=== PATIENT | male | born 1955 | race Caucasian/White ===

== ENCOUNTER → 2017-05-02 | Day surgery (SDC) | payer MEDICARE, BC ==
[~2017-05-02] MED LIST: ACETAMINOPHEN 1000 MG/100 ML VIAL IV ONE; AMOX500T PO; BACLPOW30 XX; BUPIVACAINE/EPINEPHRINE 0.5% PF 30 ML VIAL ONE; CELE200 PO; CREON24 OR; FENT50DI TD; GLUCTAB OR; KETO2SHA5 EX; LACTATED RINGER'S 1,000 ML BAG IV ONE; LIDOCAINE 0.5%/EPINEPHrine 1:200,000 SOLN 50 ML VIAL ONE; LIDOCAINE 2%/EPINEPHrine PF 1:200,000 20ML SDV ONE; LIPI80TA16 PO; MARI5CAP PO; METO10TA PO; NEVI200 PO; NUCY50TA9 PO; ONDANSETRON HCL 4 MG/2 ML VIAL IV PUSH ONE; PREG75 PO; PREV30CA36 PO; PROPOFOL 200 MG/20 ML AMP IV ONE; PROV200T11 PO; SERO100T PO; SERT100 PO; TEST-25 INJ; TRAZ150T2 PO; VIAG100T PO; XANA1TAB6 PO; [UNRECOGNIZED DRUG - CODE] SC; [UNRECOGNIZED DRUG - OTHER]; [UNRECOGNIZED DRUG - OTHER] BU; ceFAZolin INJ 1,000 MG VIAL ONE; truvada PO
--- NOTE | 2017-05-02 17:13 | TN ---
cc: MARY GONZALES M.D. DATE OF SURGERY 05/02/2017 PREOPERATIVE DIAGNOSIS Left gluteal mass measuring 2 cm. POSTOPERATIVE DIAGNOSIS Left gluteal mass measuring 2 cm. PROCEDURE Wide excision of 2 cm gluteal mass by elliptical incision measuring of 3 x 5 cm. ANESTHESIA TIVA. SURGEON Dr. Gonzales. INDICATION This is a pleasant gentleman who has a tender mass in the left gluteal region. Plans were made for above. PROCEDURE DETAILS The patient taken to the operating room and placed in the supine position. After placing him in the right lateral decubitus position the area had previously been marked and marked with Betadine. He was given antibiotics. We make an elliptical incision along Langerhans line measuring 3 x 5 cm. After anesthetizing with Marcaine solution, dissect circumferentially around the area in question and completely remove this. It is passed off the field. We then irrigate and close the deep layer with 3-0 Vicryl and skin is closed with 4-0 Vicryl. Steri-Strips applied. Sterile bandage applied. The patient tolerated the procedure well and had no immediate postoperative complications. Mary Gonzales MD [id number] /4:42 PM /4:55 PM
== END | disposition home or self-care (01) ==
LOC: ESDC 11:21
PROVIDERS: ATTEND Surgery
DX: L72.0 Epidermal cyst (principal)
CPT/HCPCS: 00300; 11406; 12032; 88304; J0131; J0690; J2405; J3010; J7120; 88305

== ENCOUNTER 2017-12-07 10:35 | Inpatient (IN) | payer MEDICARE, BC ==
[2017-12-07] VITALS (9 sets, daily range): BP systolic 116–147; BP diastolic 62–81; PULSE 84–107; RESP 16–24; TEMP 97.5–99.8; O2SAT 91–98
[~2017-12-07] VITALS: Ht 180.3 cm; Wt 89.2 kg
[~2017-12-07 10:35] MED LIST changes: -ACETAMINOPHEN 1000 MG/100 ML VIAL IV ONE; -BUPIVACAINE/EPINEPHRINE 0.5% PF 30 ML VIAL ONE; -LACTATED RINGER'S 1,000 ML BAG IV ONE; -LIDOCAINE 0.5%/EPINEPHrine 1:200,000 SOLN 50 ML VIAL ONE; -LIDOCAINE 2%/EPINEPHrine PF 1:200,000 20ML SDV ONE; -ONDANSETRON HCL 4 MG/2 ML VIAL IV PUSH ONE; -PROPOFOL 200 MG/20 ML AMP IV ONE; -ceFAZolin INJ 1,000 MG VIAL ONE
[2017-12-07] MEDS ORDERED: SODIUM CHLORID 0.9% 500 ML INJ 500 ML IV ONE (11:15)
[2017-12-07] MEDS ORDERED: [UNRECOGNIZED DRUG - CODE] (11:27)
[2017-12-07] MEDS ORDERED: REGL10TA5 PO (11:27)
[2017-12-07] MEDS ORDERED: MARI10CA PO (11:27)
[2017-12-07] MEDS ORDERED: LIPI80TA PO (11:27)
[2017-12-07] MEDS ORDERED: SERO100T PO (11:27)
[2017-12-07] MEDS ORDERED: CREON24 PO (11:27)
[2017-12-07] MEDS ORDERED: PREV30CA36 PO ×2 (11:27)
[2017-12-07] MEDS ORDERED: METF500T PO (11:27)
[2017-12-07] MEDS ORDERED: ELVITAB PO (11:27)
[2017-12-07] MEDS ORDERED: TRAZ300T2 PO (11:27)
[2017-12-07] MEDS ORDERED: VIAG100T PO (11:27)
[2017-12-07] MEDS ORDERED: AMOX500C PO (11:27)
[2017-12-07] MEDS ORDERED: XANA1TAB2 PO (11:27)
[2017-12-07] MEDS ORDERED: LYRI225C PO (11:27)
[2017-12-07] MEDS ORDERED: RITALIN PO (11:27)
[2017-12-07] MEDS ORDERED: ZOLO100T PO (11:27)
[2017-12-07] MEDS ORDERED: [UNRECOGNIZED DRUG - OTHER] (11:27)
[2017-12-07] MEDS ORDERED: AMBI12.5 PO (11:27)
[2017-12-07] MEDS ORDERED: NUCY75TA5 PO (11:27)
[2017-12-07] MEDS ORDERED: CELE200C PO (11:27)
[2017-12-07] MEDS ORDERED: KETO2CRE TOPICAL (11:27)
[2017-12-07] MEDS ORDERED: MODA1TAB31 PO (11:27)
[2017-12-07] MEDS ORDERED: RESP: ALBUTEROL 2.5 MG/IPRATROPIUM 0.5 MG NEB (SCH) NEB ONE (11:30)
[2017-12-07 11:55] LABS: AUTOMATED NEUTROPHIL # 3.5 TH/MM3 (1.8-7.7); BASOPHIL % 0.7 % (0.0-2.0); EOSINOPHIL # 0.1 TH/MM3 (0-0.4); HEMATOCRIT 44.9 % (39.0-51.0); HEMOGLOBIN 14.1 GM/DL (13.0-17.0); LYMPH % 10.2 % (9.0-44.0); LYMPHOCYTE # 0.5 TH/MM3 (1.0-4.8); MEAN CELL VOLUME 82.3 FL (80.0-100.0); MEAN CORPUSCULAR HEMOGLOBIN 25.9 PG (27.0-34.0); MEAN CORPUSCULAR HGB CONC 31.4 % (32.0-36.0); MEAN PLATELET VOLUME 8.9 FL (7.0-11.0); MONO % 7.9 % (0.0-8.0); MONOCYTE # 0.4 TH/MM3 (0-0.9); NEUT % 79.2 % (16.0-70.0); PLATELET COUNT 152 TH/MM3 (150-450); RED BLOOD COUNT 5.46 MIL/MM3 (4.50-5.90); RED CELL DISTRIBUTION WIDTH 16.1 % (11.6-17.2); WHITE BLOOD COUNT 4.5 TH/MM3 (4.0-11.0)
--- NOTE | 2017-12-07 11:59 | RADRPT ---
EXAM DATE/TIME: 12/07/2017 11:10 [facility] COMPARISON: No previous studies available for comparison. INDICATIONS : Short of breath MEDICAL HISTORY : Hypercholesterolemia. HIV SURGICAL HISTORY : Fusion, cervical. ENCOUNTER: Initial ACUITY: 1 day PAIN SCORE: 0/10 LOCATION: Bilateral chest FINDINGS: Portable AP view of the chest demonstrates a normal-sized cardiac silhouette. No effusion, consolidat ion, or pneumothorax is identified. There are background lung changes suggesting obstructive airways disease. The bones and soft tissues demonstrate no acute finding. Cervical spine hardware is present. CONCLUSION: No acute cardiopulmonary abnormalities identified. Background lung changes are torturous to give obst ructive airways disease/emphysema. Atul Spain MD on December 07, 2017 at 11:49 Board Certified Radiologist. This report was verified electronically.
[2017-12-07 12:03] LABS: CHLORIDE 108 MEQ/L (98-107); SODIUM (NA) 140 MEQ/L (136-145)
[2017-12-07 12:06] LABS: CALCIUM 8.5 MG/DL (8.5-10.1)
[2017-12-07 12:07] LABS: ALBUMIN 3.8 GM/DL (3.4-5.0); BICARBONATE 25.1 MEQ/L (21.0-32.0); BLOOD UREA NITROGEN 9 MG/DL (7-18); GLUCOSE,RANDOM 113 MG/DL (74-106)
[2017-12-07 12:10] LABS: ALT (GPT) 65 U/L (12-78); AST (GOT) 78 U/L (15-37); CREATININE 0.98 MG/DL (0.60-1.30); GLOMERULAR FILTRATION RATE 77 ML/MIN (>89); PHOSPHORUS 1.7 MG/DL (2.5-4.9)
[2017-12-07 12:11] LABS: TOTAL BILIRUBIN ADULT 0.5 MG/DL (0.2-1.0); TOTAL PROTEIN 7.1 GM/DL (6.4-8.2)
[2017-12-07 12:13] LABS: ALKALINE PHOSPHATASE 105 U/L (45-117)
--- NOTE | 2017-12-07 12:26 | PD ---
HPI Chief Complaint: Cold / Flu Symptoms Time Seen by Provider: 11:08 Travel History International Travel<30 days: No Contact w/Intl Traveler<30days: No Traveled to known affect area: No History of Present Illness HPI 62-year-old male presents with cough, chills, nasal congestion since last night. He states he feels worse when he moves around. He notes sick contacts. He denies other concurrent complaints at this time. He states he follows regularly with Dr. Berry and his last CD4 was about 950. Quality is productive. Severity is frequent. He denies other modifying factors. Duration is since last night. PFSH Past Medical History Arthritis: Yes Blood Disorders: No Anxiety: Yes Depression: Yes Cancer: No Cardiovascular Problems: No High Cholesterol: Yes Diabetes: Yes Patient Takes Glucophage: Yes (TODAY) Diminished Hearing: No Endocrine: No Gastrointestinal Disorders: Yes (HX RECTAL ULCER) GERD: Yes Genitourinary: No Hiatal Hernia: Yes Immune Disorder: Yes (HIV) Implanted Vascular Access Dvce: Yes Musculoskeletal: Yes Neurologic: No Psychiatric: Yes Reproductive: No Respiratory: Yes (EVERARDO) Pancreatitis: Yes Sleep Apnea: Yes (uses c-pap) Tetanus Vaccination: Unknown Past Surgical History Abdominal Surgery: Yes (appendectomy,cholecystectomy) Appendectomy: Yes Body Medical Devices: titanium plates in the back and neck Cholecystectomy: Yes Joint Replacement: Yes (BILATERAL HIP) Oral Surgery: Yes (T & A, UPPP) Pacemaker: No Tonsillectomy: Yes Other Surgery: Yes (LEFT TOTAL HIP TRANSPLANT) Social History Alcohol Use: No Tobacco Use: Yes (6 cigarettes per day) Substance Use: No Allergies-Medications (Allergen,Severity, Reaction): Coded Allergies: ciprofloxacin (Verified Allergy, Severe, RASH, 12/07/17) Reported Meds & Prescriptions Reported Meds & Active Scripts Active Reported [Ritalin] 10 Mg PO BID Ambien CR (Zolpidem Tartrate) 12.5 Mg Tab 12.5 Mg PO HS PRN Amoxicillin 500 Mg Cap 500 Mg PO DIRECTED Fluoridex (Fluoride (Sodium)) 1.1 % Sodium Fluoride Paste..g. Seroquel (Quetiapine Fumarate) 100 Mg Tab 100 Mg PO HS Xanax (Alprazolam) 1 Mg Tab 1 Mg PO QID PRN Trazodone (Trazodone HCl) 300 Mg Tab 300 Mg PO HS Zoloft (Sertraline HCl) 100 Mg Tab 100 Mg PO DAILY Metformin (Metformin HCl) 500 Mg Tab 500 Mg PO BIDPC Ketoconazole Topical 2% Cream 1 Applic TOPICAL BID Marinol (Dronabinol) 10 Mg Cap 10 Mg PO HS Reglan (Metoclopramide HCl) 10 Mg Tab 10 Mg PO QID Stribild (Yrvlrdaqgiss-Fdgtwghirj-Iwtypvyvxeaj-Tenofvir) [phone] Mg Tab 1 Tab PO DAILY With food Creon (Amylase/Lipase/Protease) 24,000-76,000-120,000 Units Cap 1 Cap PO QID NEB Viagra (Sildenafil Citrate) 100 Mg Tab 100 Mg PO DAILY PRN Lipitor (Atorvastatin Calcium) 80 Mg Tab 80 Mg PO HS Prevacid (Lansoprazole) 30 Mg Capdr 30 Mg PO DAILY Prevacid (Lansoprazole) 30 Mg Capdr 30 Mg PO BID Celebrex (Celecoxib) 200 Mg Cap 200 Mg PO BID Lyrica (Pregabalin) 225 Mg Cap 225 Mg PO BID Provigil (Modafinil) 200 Mg Tab 200 Mg PO DAILY [Duralgesic] 50 Nucynta (Tapentadol) 75 Mg Tab 75 Mg PO TID PRN [Xerostomic] [Fluoridex Toothpaste] 1 Appl BU DAILY [truvada] PO DAILY [Testosterone] 200 Mg INJ [id number] Review of Systems Except as stated in HPI: all other systems reviewed are Neg Physical Exam Narrative GENERAL: Well-nourished, well-developed patient. SKIN: Warm and dry. HEAD: Normocephalic and atraumatic. EYES: No injection or drainage. ENT: No nasal drainage noted. NECK: Supple, trachea midline. CARDIOVASCULAR: Regular rate and rhythm RESPIRATORY: Expiratory wheezing bilaterally. No accessory muscle use. GASTROINTESTINAL: Abdomen soft, non-tender, nondistended. EXTREMITIES: No edema. NEUROLOGICAL: Awake and alert. Motor and sensory grossly within normal limits. Normal speech. Data Data Last Documented VS Vital Signs Date Time Temp Pulse Resp B/P (MAP) Pulse Ox O2 Delivery O2 Flow Rate FiO2 12/07/17 12:21 98.6 85 18 119/63 (81) 93 Nasal Cannula 2.00 with walk test made it two steps and was 88% on room air Orders Orders Complete Blood Count With Diff (12/07/17 11:07) Comprehensive Metabolic Panel (12/07/17 11:07) Prothrombin Time / Inr (Pt) (12/07/17 11:07) Act Partial Throm Time (Ptt) (12/07/17 11:07) Lactic Acid Sepsis Protocol (12/07/17 11:07) Magnesium (Mg) (12/07/17 11:07) Phosphorus (Po4) (12/07/17 11:07) Urinalysis - C+S If Indicated (12/07/17 11:07) Influenzae A/B Antigen (12/07/17 11:07) Blood Culture (12/07/17 11:07) Chest, Single Ap (12/07/17 11:07) Ecg Monitoring (12/07/17 11:07) Iv Access Insert/Monitor (12/07/17 11:07) Oximetry (12/07/17 11:07) Oxygen Administration (12/07/17 11:07) Sodium Chlorid 0.9% 500 Ml Inj (Ns 500 M (12/07/17 11:15) Albuterol-Ipratropium Neb (Duoneb Neb) (12/07/17 11:30) Methylprednisolone So Succ Inj (Solumedr (12/07/17 12:30) Albuterol-Ipratropium Neb (Duoneb Neb) (12/07/17 12:30) Azithromycin Inj (Zithromax Inj) (12/07/17 12:30) Admit Order (Ed Use Only) (12/07/17 13:12) Admit To Inpatient (12/07/17 ) Vital Signs (Adult) SURI.Q4H (12/07/17 13:22) Activity Oob With Assistance (12/07/17 13:22) Resp Oxygen Vasquez C Titrat 1-4 L (12/07/17 ) Inpatient Certification (12/07/17 ) Albuterol-Ipratropium Neb (Duoneb Neb) (12/07/17 16:00) Albuterol Neb (Albuterol Neb) (12/07/17 13:30) Methylprednisolone So Succ Inj (Solumedr (12/07/17 14:00) Labs Laboratory Tests Test 12/07/17 11:45 White Blood Count 4.5 TH/MM3 Red Blood Count 5.46 MIL/MM3 Hemoglobin 14.1 GM/DL Hematocrit 44.9 % Mean Corpuscular Volume 82.3 FL Mean Corpuscular Hemoglobin 25.9 PG Mean Corpuscular Hemoglobin Concent 31.4 % Red Cell Distribution Width 16.1 % Platelet Count 152 TH/MM3 Mean Platelet Volume 8.9 FL Neutrophils (%) (Auto) 79.2 % Lymphocytes (%) (Auto) 10.2 % Monocytes (%) (Auto) 7.9 % Eosinophils (%) (Auto) 2.0 % Basophils (%) (Auto) 0.7 % Neutrophils # (Auto) 3.5 TH/MM3 Lymphocytes # (Auto) 0.5 TH/MM3 Monocytes # (Auto) 0.4 TH/MM3 Eosinophils # (Auto) 0.1 TH/MM3 Basophils # (Auto) 0.0 TH/MM3 CBC Comment DIFF FINAL Differential Comment Prothrombin Time 11.3 SEC Prothromb Time International Ratio 1.1 RATIO Activated Partial Thromboplast Time 30.0 SEC Blood Urea Nitrogen 9 MG/DL Creatinine 0.98 MG/DL Random Glucose 113 MG/DL Total Protein 7.1 GM/DL Albumin 3.8 GM/DL Calcium Level 8.5 MG/DL Phosphorus Level 1.7 MG/DL Magnesium Level 2.0 MG/DL Alkaline Phosphatase 105 U/L Aspartate Amino Transf (AST/SGOT) 78 U/L Alanine Aminotransferase (ALT/SGPT) 65 U/L Total Bilirubin 0.5 MG/DL Sodium Level 140 MEQ/L Potassium Level 3.8 MEQ/L Chloride Level 108 MEQ/L Carbon Dioxide Level 25.1 MEQ/L Anion Gap 7 MEQ/L Estimat Glomerular Filtration Rate 77 ML/MIN Lactic Acid Level 1.2 mmol/L MDM Medical Decision Making Medical Screen Exam Complete: Yes Emergency Medical Condition: Yes Medical Record Reviewed: Yes (past history confirmed) Interpretation(s) CBC & BMP Diagram 12/07/17 11:45 Total Protein 7.1, Albumin 3.8, Calcium Level 8.5, Phosphorus Level 1.7 L, Magnesium Level 2.0, Alkaline Phosphatase 105, Aspartate Amino Transf (AST/SGOT ) 78 H, Alanine Aminotransferase (ALT/SGPT) 65, Total Bilirubin 0.5 Last 24 hours Impressions Chest X-Ray 12/07/17 1107 Signed Impressions: Service Date/Time: Thursday, December 07, 2017 11:10 - CONCLUSION: No acute cardiopulmonary abnormalities identified. Background lung changes are torturous to give obstructive airways disease/emphysema. Atul Spain MD Differential Diagnosis COPD exacerbation, pneumonia, URI Narrative Course Will check blood work, influenza, chest x-ray and dose with IV fluids, DuoNeb and reevaluate Patient still hypoxic. We will dose with Solu-Medrol and repeat DuoNeb and admit to the hospital for further care. Likely new onset COPD with upper respiratory infection. Will dose with azithromycin. Patient has no elevated white count or lactate at this time. He is in agreement to plan Physician Communication Physician Communication dr ferrera agrees to admit Diagnosis Primary Impression: Upper respiratory disease Additional Impressions: Hypoxia HIV (human immunodeficiency virus infection) Admitting Information Admitting Physician Requests: Admit Gema Valdez MD Dec 07, 2017 12:25
[2017-12-07] MEDS ORDERED: methylPREDNISolone SOD SUCC 125 MG/2 ML VIAL IV PUSH ONE (12:30)
[2017-12-07] MEDS ORDERED: AZITHROMYCIN INJ 500 MG in SODIUM CHLOR 0.9% 250 ML INJ 250 ML IV ONE (12:30)
[2017-12-07] MEDS ORDERED: RESP: ALBUTEROL 2.5 MG/IPRATROPIUM 0.5 MG NEB (SCH) INH ONE (12:30)
[2017-12-07 12:37] LABS: INTERNATIONAL NORMALIZED RATIO 1.1 RATIO; PROTHROMBIN TIME - PATIENT 11.3 SEC (9.8-11.6)
[2017-12-07] MEDS ORDERED: DEXTROSE 50% IN WATER 50 ML VIAL(D50) IV PUSH PRN (15:30)
[2017-12-07] MEDS ORDERED: GLUCAGON 1 MG/ML VIAL OTHER PRN (15:30)
--- NOTE | 2017-12-07 15:30 | HHI.HP ---
[facility] Service [facility] ([place], [place])ists Primary Care Physician Miguel A Bermudez MD Admission Diagnosis hiv, hypoxia Diagnoses: Chief Complaint: Shortness of breath Travel History International Travel<30 Days: No Contact w/Intl Traveler <30 Da: No Traveled to Known Affected Are: No History of Present Illness 62-year-old male being admitted for acute hypoxic respiratory failure. Patient was in his usual state of health until about a few days ago when he began experiencing a runny nose. He was able to carry on with his routine tasks and chores until late last night he began coughing a lot. This morning when he woke up he began experiencing significant shortness of breath that prompted him to come to the emergency department. He denies any cyanosis, chest pain, nausea vomiting, diarrhea. He does report having chills. He says that his cough is very wet sounding but is unable to expectorate any sputum. He says he took some Robitussin to no avail. In the emergency department the patient was noted to desaturate down to 80% while walking on room air. Chest x-ray was obtained which shows what appears to be more chronic changes to the patient's lungs. Patient's medical history significant for HIV (currently without AIDS), on AMARO therapy, anxiety, insomnia, chronic pain. Social history and feels that the patient says he's been smoking up to about 6 cigarettes a day for about the past 30 years. Patient denies any family history of a particular lung disease or lung cancer. Review of Systems Except as stated in HPI: all other systems reviewed are Neg Past Family Social History Allergies: Coded Allergies: ciprofloxacin (Verified Allergy, Severe, RASH, 12/07/17) Physical Exam Vital Signs Vital Signs Date Time Temp Pulse Resp B/P (MAP) Pulse Ox O2 Delivery O2 Flow Rate FiO2 12/07/17 14:54 12/07/17 14:27 86 16 129/71 (90) 94 Nasal Cannula 2.00 12/07/17 13:27 84 16 116/67 (83) 93 Nasal Cannula 2.00 12/07/17 12:21 98.6 85 18 119/63 (81) 93 Nasal Cannula 2.00 12/07/17 12:20 85 18 119/63 (81) 93 Nasal Cannula 2.00 12/07/17 11:57 95 Nasal Cannula 2.00 12/07/17 10:46 99.8 107 24 133/62 (85) 91 Physical Exam VS: afebrile GENERAL: Well-nourished middle-aged male, lying in bed sleeping, easily aroused, no acute distress SKIN: Warm and dry. EYES: No scleral icterus. No injection or drainage. ENT: Nasal cannula and nose, normal cephalic, atraumatic CARDIOVASCULAR: Regular rate and rhythm. no murmurs RESPIRATORY: No accessory muscle use. Junky breath sounds bilaterally with copious wheezing and rhonchi GASTROINTESTINAL: Abdomen soft, non-tender, nondistended. Extremities: No clubbing, cyanosis, or edema. No obvious deformities. MUSCULOSKELETAL: adequate muscle bulk and tone for age and habitus NEUROLOGICAL: Awake and alert. No obvious cranial nerve deficits. No facial droop nor slurred speech noted. PSYCHIATRIC: Appropriate mood and affect; insight and judgment normal. Laboratory Laboratory Tests Test 12/07/17 11:45 White Blood Count 4.5 Red Blood Count 5.46 Hemoglobin 14.1 Hematocrit 44.9 Mean Corpuscular Volume 82.3 Mean Corpuscular Hemoglobin 25.9 Mean Corpuscular Hemoglobin Concent 31.4 Red Cell Distribution Width 16.1 Platelet Count 152 Mean Platelet Volume 8.9 Neutrophils (%) (Auto) 79.2 Lymphocytes (%) (Auto) 10.2 Monocytes (%) (Auto) 7.9 Eosinophils (%) (Auto) 2.0 Basophils (%) (Auto) 0.7 Neutrophils # (Auto) 3.5 Lymphocytes # (Auto) 0.5 Monocytes # (Auto) 0.4 Eosinophils # (Auto) 0.1 Basophils # (Auto) 0.0 CBC Comment DIFF FINAL Differential Comment Prothrombin Time 11.3 Prothromb Time International Ratio 1.1 Activated Partial Thromboplast Time 30.0 Blood Urea Nitrogen 9 Creatinine 0.98 Random Glucose 113 Total Protein 7.1 Albumin 3.8 Calcium Level 8.5 Phosphorus Level 1.7 Magnesium Level 2.0 Alkaline Phosphatase 105 Aspartate Amino Transf (AST/SGOT) 78 Alanine Aminotransferase (ALT/SGPT) 65 Total Bilirubin 0.5 Sodium Level 140 Potassium Level 3.8 Chloride Level 108 Carbon Dioxide Level 25.1 Anion Gap 7 Estimat Glomerular Filtration Rate 77 Lactic Acid Level 1.2 Date/Time Source Procedure Growth Status 12/07/17 11:45 Blood Peripheral Aerobic Blood Culture Pending Received 12/07/17 11:45 Blood Peripheral Anaerobic Blood Culture Pending Received 12/07/17 11:45 Nasal Aspirate Influenza Types A,B Antigen (KITA) - Final NEGATIVE FOR FLU A AND B ANTIGEN.... Complete Result Diagram: 12/07/17 1145 12/07/17 1145 Caprini VTE Risk Assessment Caprini VTE Risk Assessment: Mod/High Risk (score >= 2) Caprini Risk Assessment Model Point Value = 1 Point Value = 2 Point Value = 3 Point Value = 5 Age 41-60 Minor surgery BMI > 25 kg/m2 Swollen legs Varicose veins or History of unexplained or recurrent spontaneous Oral contraceptives or hormone replacement Sepsis (< 1 month) Serious lung disease, including pneumonia (< 1 month) Abnormal pulmonary function Acute myocardial infarction Congestive heart failure (< 1 month) History of inflammatory bowel disease Medical patient at bed rest Age 61-74 Arthroscopic surgery Major open surgery (> 45 min) Laparoscopic surgery (> 45 min) Malignancy Confined to bed (> 72 hours) Immobilizing plaster cast Central venous access Age >= 75 History of VTE Family history of VTE Factor V Leiden Prothrombin [id number] Lupus anticoagulant Anticardiolipin antibodies Elevated serum homocysteine Heparin-induced thrombocytopenia Other congenital or acquired thrombophilia Stroke (< 1 month) Elective arthroplasty Hip, pelvis, or leg fracture Acute spinal cord injury (< 1 month) Prophylaxis Regimen Total Risk Factor Score Risk Level Prophylaxis Regimen 0-1 Low Early ambulation 2 Moderate Order ONE of the following: *Sequential Compression Device (SCD) *Heparin 5000 units SQ BID 3-4 Higher Order ONE of the following medications: *Heparin 5000 units SQ TID *Enoxaparin/Lovenox 40 mg SQ daily (WT < 150 kg, CrCl > 30 mL/min) *Enoxaparin/Lovenox 30 mg SQ daily (WT < 150 kg, CrCl > 10-29 mL/min) *Enoxaparin/Lovenox 30 mg SQ BID (WT < 150 kg, CrCl > 30 mL/min) AND/OR *Sequential Compression Device (SCD) 5 or more Highest Order ONE of the following medications: *Heparin 5000 units SQ TID (Preferred with Epidurals) *Enoxaparin/Lovenox 40 mg SQ daily (WT < 150 kg, CrCl > 30 mL/min) *Enoxaparin/Lovenox 30 mg SQ daily (WT < 150 kg, CrCl > 10-29 mL/min) *Enoxaparin/Lovenox 30 mg SQ BID (WT < 150 kg, CrCl > 30 mL/min) AND *Sequential Compression Device (SCD) Assessment and Plan Assessment and Plan 62-year-old male admitted with acute respiratory failure secondary to bronchitis w/ PMH of HIV. Acute respiratory failure - We'll administer O2 and titrate as tolerated. We will obtain a d-dimer given a Wells score 4 placing him at moderate risk for PE. We'll cover the patient with Solu-Medrol as well as Rocephin and azithromycin or any bacterial component involved. I independent review the chest x-ray which shows diffuse interstitial findings more characteristic of chronic changes with no focal infiltrates. Ordered EKG. we will also administer duo nebs with Mucomyst. Neg for flu; bc's pending. HIV - Continue home medications Mood disorders - Continue home medications DM - continue LDSS Lovenox Physician Certification 2 Midnight Certification Type: Admission for Inpatient Services Order for Inpatient Services The services are ordered in accordance with Medicare regulations or non- Medicare payer requirements, as applicable. In the case of services not specified as inpatient-only, they are appropriately provided as inpatient services in accordance with the 2-midnight benchmark. Estimated LOS (days): 2 2 days is the estimated time the patient will need to remain in the hospital, assuming treatment plan goals are met and no additional complications. Post-Hospital Plan: Home Hernesto Castellanos MD Dec 07, 2017 15:30
[2017-12-07] MEDS ORDERED: ENOXAPARIN SODIUM 30 MG/0.3 ML SYRINGE SQ SCH (17:00)
[2017-12-07] MEDS ORDERED: LIPASE/PROTEASE/AMYLASE (24,000/76,000/120,000) CAP PO SCH (17:00)
[2017-12-07] MEDS ORDERED: TAPENTADOL 75 MG PO (17:00)
[2017-12-07] MEDS: INSULIN NovoLIN REGULAR SUPPLEMENTAL SCALE SQ SCH ×2 (17:00→23:05)
[2017-12-07] MEDS: cefTRIAXone INJ 2,000 MG in SODIUM CHLORIDE 0.9% INJ 100 ML IV SCH (17:19)
[2017-12-07] MEDS: METOCLOPRAMIDE HCL 10 MG TAB PO SCH ×2 (17:19→23:08)
[2017-12-07] MEDS: RESP: ALBUTEROL 2.5 MG/IPRATROPIUM 0.5 MG NEB (SCH) NEB ×2 (17:26→21:51)
[2017-12-07] MEDS: RESP: ACETYLCYSTEINE 10% 30 ML NEB NEB SCH (20:00)
[2017-12-07] MEDS ORDERED: ATORVASTATIN 80 MG TAB PO SCH (21:00)
[2017-12-07] MEDS: methylPREDNISolone SOD SUCC 125 MG/2 ML VIAL IV PUSH SCH (23:07)
[2017-12-07] MEDS: QUEtiapine FUMARATE 100 MG TAB PO SCH (23:07)
[2017-12-07] MEDS: traZODone HCL 100 MG TAB PO SCH (23:07)
[2017-12-07] MEDS: PREGABALIN 75 MG CAP PO SCH (23:08)
[2017-12-07] MEDS: KETOCONAZOLE 2% CREAM 15 GM TOPICAL SCH (23:10)
[2017-12-08] VITALS (7 sets, daily range): BP systolic 136–167; BP diastolic 76–80; PULSE 86–101; RESP 16–21; TEMP 97.5–98.6; O2SAT 93–97
[2017-12-08] MEDS: RESP: ALBUTEROL 2.5 MG/IPRATROPIUM 0.5 MG NEB (SCH) NEB ×2 (04:00→10:11)
[2017-12-08] MEDS: methylPREDNISolone SOD SUCC 125 MG/2 ML VIAL IV PUSH SCH ×2 (05:10→10:10)
[2017-12-08] MEDS: INSULIN NovoLIN REGULAR SUPPLEMENTAL SCALE SQ SCH ×4 (08:00→21:58)
--- NOTE | 2017-12-08 08:36 | HHI.PR ---
Objective Vitals Vital Signs Date Time Temp Pulse Resp B/P (MAP) Pulse Ox O2 Delivery O2 Flow Rate FiO2 12/08/17 00:00 98.6 86 16 136/80 (98) 97 12/07/17 21:55 98 Nasal Cannula 2.00 12/07/17 20:00 98.8 91 16 147/81 (103) 96 12/07/17 17:04 94 Nasal Cannula 2.00 12/07/17 16:00 97.5 85 16 135/77 (96) 95 12/07/17 14:54 12/07/17 14:27 86 16 129/71 (90) 94 Nasal Cannula 2.00 12/07/17 13:27 84 16 116/67 (83) 93 Nasal Cannula 2.00 12/07/17 12:21 98.6 85 18 119/63 (81) 93 Nasal Cannula 2.00 12/07/17 12:20 85 18 119/63 (81) 93 Nasal Cannula 2.00 12/07/17 11:57 95 Nasal Cannula 2.00 12/07/17 10:46 99.8 107 24 133/62 (85) 91 I/O 12/07/17 12/07/17 12/07/17 12/08/17 12/08/17 12/08/17 07:00 15:00 23:00 07:00 15:00 23:00 Intake Total 500 ml 240 ml 520 ml Output Total 100 ml Balance 500 ml 140 ml 520 ml Intake Oral 240 ml 520 ml IV Total 500 ml Output Urine Total 100 ml # Bowel Movements 0 Result Diagram: 12/07/17 1145 12/07/17 1145 Rachel Naranjo Dec 08, 2017 08:36
[2017-12-08] MEDS ORDERED: PNEUMOCOCCAL POLYVALENT INJ 25 MCG/0.5 ML SYR IM ONE (10:00)
[2017-12-08] MEDS: METOCLOPRAMIDE HCL 10 MG TAB PO SCH ×4 (10:05→22:01)
[2017-12-08] MEDS: SERTRALINE HCL 100 MG TAB PO SCH (10:05)
[2017-12-08] MEDS: KETOCONAZOLE 2% CREAM 15 GM TOPICAL SCH ×2 (10:10→22:03)
[2017-12-08] MEDS: ELVIT/COBI/EMTR/TENOF 150/150/200/300 MG TABLETS PO SCH (10:10)
[2017-12-08] MEDS: PREGABALIN 75 MG CAP PO SCH ×2 (10:10→21:59)
[2017-12-08] MEDS: MODAFINIL 200 MG TAB PO SCH (10:10)
[2017-12-08] MEDS: PANTOPRAZOLE SOD 40 MG DELAYED RELEASE TAB PO SCH (10:10)
[2017-12-08] MEDS: RESP: ACETYLCYSTEINE 10% 30 ML NEB NEB SCH ×3 (10:11→19:54)
[2017-12-08] MEDS ORDERED: IOHEXOL 350 MG/ML 10 ML VIAL (for RAD DIAG) IVCONTRAST ONE (10:50)
--- NOTE | 2017-12-08 11:24 | RADRPT ---
EXAM DATE/TIME: 12/08/2017 10:28 [facility] COMPARISON: No previous studies available for comparison. INDICATIONS : Embolism, hypoxia.SOB. IV CONTRAST: 100 cc Omnipaque 350 (iohexol) IV RADIATION DOSE: 11.03 CTDIvol (mGy) MEDICAL HISTORY : Hypercholesterolemia. HIV, rectal and stomach ulcers. SURGICAL HISTORY : Cholecystectomy. Tonsillectomy.Appendectomy.Hip ENCOUNTER: Initial ACUITY: 1 day PAIN SCALE: 6/10 LOCATION: chest TECHNIQUE: Volumetric scanning of the chest was performed using a pulmonary embolism protocol MIP images were re constructed. Using automated exposure control and adjustment of the mA and/or kV according to patien t size, radiation dose was kept as low as reasonably achievable to obtain optimal diagnostic quality images. DICOM format image data is available electronically for review and comparison. Follow-up recommendations for detected pulmonary nodules are based at a minimum on nodule size and pa tient risk factors according to Fleischner Society Guidelines. FINDINGS: PULMONARY ARTERIES: Opacification of the pulmonary arteries is approximately equivalent to the aorta. This limits evaluat ion of the segmental and subsegmental branches. No abnormal filling defects are identified. LUNGS: Moderate severity paraseptal emphysema of the left upper lobe. Mild emphysema of the right upper lobe and lower lobes. Calcified granuloma in the right lower lobe. PLEURAE: There is no pleural thickening or pleural effusion. MEDIASTINUM: Coronary artery calcification. No enlarged lymph nodes. MUSCULOSKELETAL: Within normal limits for patient age. MISCELLANEOUS: The visualized upper abdominal organs demonstrate no acute abnormality. CONCLUSION: 1. Examination somewhat limited for evaluation of segmental and subsegmental branches. No pulmonary e mbolus identified. 2. Pulmonary emphysema most prominent at the left upper lobe. Bari Ramirez MD on December 08, 2017 at 11:16 Board Certified Radiologist. This report was verified electronically.
[2017-12-08] MEDS: methylPREDNISolone SOD SUCC 40 MG/1 ML VIAL IV PUSH SCH ×2 (12:31→21:58)
[2017-12-08] MEDS ORDERED: AZITHROMYCIN INJ 500 MG in SODIUM CHLOR 0.9% 250 ML INJ 250 ML IV SCH (13:00)
--- NOTE | 2017-12-08 13:55 | HHI.PR ---
Subjective Remarks Patient seen today in follow-up for respiratory distress. Tolerating current antibiotics. No fever or leukocytosis noted above patient appears diaphoretic Objective Vital Signs Date Time Temp Pulse Resp B/P (MAP) Pulse Ox O2 Delivery O2 Flow Rate FiO2 12/08/17 12:00 97.9 97 19 142/78 (99) 93 12/08/17 10:15 95 Nasal Cannula 2.00 12/08/17 08:00 98.6 87 21 137/78 (97) 94 12/08/17 00:00 98.6 86 16 136/80 (98) 97 12/07/17 21:55 98 Nasal Cannula 2.00 12/07/17 20:00 98.8 91 16 147/81 (103) 96 12/07/17 17:04 94 Nasal Cannula 2.00 12/07/17 16:00 97.5 85 16 135/77 (96) 95 12/07/17 14:54 12/07/17 14:27 86 16 129/71 (90) 94 Nasal Cannula 2.00 I/O 12/07/17 12/07/17 12/07/17 12/08/17 12/08/17 12/08/17 07:00 15:00 23:00 07:00 15:00 23:00 Intake Total 500 ml 240 ml 520 ml Output Total 100 ml Balance 500 ml 140 ml 520 ml Intake Oral 240 ml 520 ml IV Total 500 ml Output Urine Total 100 ml # Bowel Movements 0 Result Diagram: 12/07/17 1145 12/07/17 1145 A/P Problem List: (1) HIV (human immunodeficiency virus infection) ICD Code: B20 - Human immunodeficiency virus [HIV] disease Status: Acute Assessment & Plan: continue antivirals (2) Hypoxia ICD Code: R09.02 - Hypoxemia Status: Acute Assessment & Plan: Etiology unclear in this patient with known immunocompromise Continue with empiric antibiotics for community-acquired pneumonia, CT of the chest negative for embolic phenomena however there appears to be underlying emphysema although it is unclear if this is enough to cause the patient's acute shortness of breath Follow-up with pulmonology for further treatment plan Continue bronchodilators, empiric IV steroids, empiric IV antibiotics Lyndsay Orourke MD Dec 08, 2017 13:55
--- NOTE | 2017-12-08 14:51 | EKG ---
Date Performed: 12/07/2017 Time Performed: 16:04:57 PTAGE: 62 years EKG: Sinus rhythm with atrial premature complexes BORDERLINE ECG PREVIOUS TRACING : 10/08/2013 06.49 Compared to prior tracing, no significant change. DOCTOR: Rodolfo Cai Interpretating Date/Time 12/08/2017 14:49:56
[2017-12-08] MEDS ORDERED: SODIUM PHOSPHATE INJ 30 MMOL in SODIUM CHLOR 0.9% 250 ML INJ 250 ML IV ONE (15:00)
[2017-12-08] MEDS: RESP: ALBUTEROL 1.25 MG/3 ML NEB (PRN) NEB ×2 (15:40→19:53)
[2017-12-08] MEDS ORDERED: ENOXAPARIN SODIUM 30 MG/0.3 ML SYRINGE SQ SCH (17:00)
[2017-12-08] MEDS: cefTRIAXone INJ 2,000 MG in SODIUM CHLORIDE 0.9% INJ 100 ML IV SCH (17:21)
--- NOTE | 2017-12-08 19:39 | MB ---
cc: JOSÉ KUMAR DATE OF CONSULTATION 12/08/17 REASON FOR CONSULTATION URI and hypoxemia. HISTORY OF PRESENT ILLNESS The patient is a 62-year-old male with known history of obstructive sleep apnea for which he uses C-PAP therapy. He had developed a cough, nasal congestion, minimal sputum production becoming progressively worse which had brought him to the emergency room. The patient does have known history of HIV infection in the past, followed by Dr. Mason. The patient denies history of hemoptysis, previous TB or industrial exposure. PAST MEDICAL HISTORY 1. HIV infection, no AIDS at present receiving therapy and followed by infectious disease as above. 2. History of mood disorder namely anxiety, depression, 3. Chronic insomnia for which he is receiving therapy 4. Obstructive sleep apnea on C-PAP. FAMILY HISTORY Noncontributory ALLERGIES CIPROFLOXACIN MEDICATIONS Current 1. lipase/proteus/Amylase. 2. Atorvastatin 3. Lovenox 4. Solu-Medrol. 5. Zithromax 6. Stribild 7. Sertraline 8. Modafinil 9. Protonix, 10. Seroquel 11. Lyrica 12. Ambien 10 mg at bedtime 13. Mucomyst, 14. Reglan 15. Xanax as needed 16. Albuterol nebulizer ALLERGIES CIPROFLOXACIN FAMILY HISTORY Noncontributory. REVIEW OF SYSTEMS 12-point review of systems as per HPI and past history otherwise negative. PHYSICAL EXAMINATION VITAL SIGNS: Temperature is 98.6, pulse 86, respirations 18, blood pressure 130/60. HEENT: Exam unremarkable. Eyes without icterus. NECK: Without adenopathy or thyroid enlargement. Central trachea. CHEST: Few scattered rhonchi at lung bases. CARDIAC: PMI distant. S1, S2 audible. No murmur or rub. ABDOMEN: Lax. Audible bowel sounds. EXTREMITIES: No clubbing, cyanosis or edema. SKIN: Normal. No lymphadenopathy. LABORATORY DATA White count 4.5, hemoglobin 14, hematocrit 44, platelets 152,000, Sodium 140, potassium 3.8, BUN nine, creatinine 0.9. IMAGING STUDIES CT angiogram without evidence of pulmonary emboli. Emphysematous change mostly at the lung apices. IMPRESSION 1. URI evidence of hypoxemia upon presentation. The patient's oxygen saturation at 94% on 3 liters oxygen by nasal cannula at present. 2. Obstructive sleep apnea on C-PAP 3. HIV infection 4. Mood disorder 5. Insomnia. PLAN The patient has been started on antibiotic therapy and appropriately so. Oxygen therapy will be given as needed. Hopefully, his hypoxemia is transient with the attended acute infection. We will follow his course along with you and depending on his response we will proceed further. I do thank you for asking me to partake in Mr. Godfrey' care. José Kumar MD WWW/ /6:51 PM /7:02 PM
[2017-12-08] MEDS: ATORVASTATIN 40 MG TAB PO SCH (21:59)
[2017-12-08] MEDS: traZODone HCL 100 MG TAB PO SCH (22:00)
[2017-12-08] MEDS: QUEtiapine FUMARATE 100 MG TAB PO SCH (22:01)
[2017-12-08] MEDS: LIPASE/PROTEASE/AMYLASE (24,000/76,000/120,000) CAP PO SCH (22:12)
[2017-12-08] MEDS: ZOLPIDEM TARTRATE 10 MG TAB PO PRN (22:13)
[2017-12-09] VITALS (7 sets, daily range): BP systolic 140–169; BP diastolic 60–88; PULSE 78–90; RESP 18–20; TEMP 97.3–97.9; O2SAT 91–96
[2017-12-09] MEDS: methylPREDNISolone SOD SUCC 40 MG/1 ML VIAL IV PUSH SCH ×3 (04:34→21:07)
[2017-12-09] MEDS: RESP: ACETYLCYSTEINE 10% 30 ML NEB NEB SCH ×3 (07:38→19:49)
[2017-12-09] MEDS: RESP: ALBUTEROL 1.25 MG/3 ML NEB (PRN) NEB ×3 (07:38→19:49)
[2017-12-09] MEDS: KETOCONAZOLE 2% CREAM 15 GM TOPICAL SCH ×2 (09:00→20:51)
[2017-12-09] MEDS: PREGABALIN 75 MG CAP PO SCH ×2 (09:04→20:50)
[2017-12-09] MEDS: ELVIT/COBI/EMTR/TENOF 150/150/200/300 MG TABLETS PO SCH (09:04)
[2017-12-09] MEDS: INSULIN NovoLIN REGULAR SUPPLEMENTAL SCALE SQ SCH ×4 (09:04→21:07)
[2017-12-09] MEDS: MODAFINIL 200 MG TAB PO SCH (09:04)
[2017-12-09] MEDS: METOCLOPRAMIDE HCL 10 MG TAB PO SCH ×4 (09:04→20:49)
[2017-12-09] MEDS: LIPASE/PROTEASE/AMYLASE (24,000/76,000/120,000) CAP PO SCH ×4 (09:04→20:51)
[2017-12-09] MEDS: SERTRALINE HCL 100 MG TAB PO SCH (09:04)
[2017-12-09] MEDS: PANTOPRAZOLE SOD 40 MG DELAYED RELEASE TAB PO SCH (09:04)
--- NOTE | 2017-12-09 09:22 | HHI.PR ---
Subjective Remarks Follow-up hypoxia secondary to upper respiratory infection. She was seen and examined, lying in bed on supplemental O2, 2L NC comfortably in no apparent distress. Patient is awake and alert, pleasant. States he slept well overnight , was able to use his home CPAP machine. Denies any chest pain. Does still complain of continued shortness of breath with exertion. Eating well. Denies any abdominal pain, nausea, vomiting or diarrhea. Objective Vitals Vital Signs Date Time Temp Pulse Resp B/P (MAP) Pulse Ox O2 Delivery O2 Flow Rate FiO2 12/09/17 07:40 93 Nasal Cannula 2.00 12/09/17 05:03 12/09/17 00:00 97.9 78 20 169/60 (96) 94 12/08/17 20:00 97.5 98 21 167/76 (106) 94 12/08/17 19:54 94 Nasal Cannula 2.00 12/08/17 16:00 98.0 101 20 160/80 (106) 94 12/08/17 12:00 97.9 97 19 142/78 (99) 93 12/08/17 10:15 95 Nasal Cannula 2.00 I/O 12/08/17 12/08/17 12/08/17 12/09/17 12/09/17 12/09/17 07:00 15:00 23:00 07:00 15:00 23:00 Intake Total 520 ml 720 ml 750 ml Output Total 1800 ml Balance 520 ml 720 ml -1050 ml Intake Oral 520 ml 720 ml 750 ml Output Urine Total 1800 ml # Voids 2 # Bowel Movements 1 0 Result Diagram: 12/07/17 1145 12/07/17 [address] Angiography 12/08/17 0000 Signed Impressions: Service Date/Time: Friday, December 08, 2017 10:28 - CONCLUSION: 1. Examination somewhat limited for evaluation of segmental and subsegmental branches. No pulmonary embolus identified. 2. Pulmonary emphysema most prominent at the left upper lobe. Bari Ramirez MD Chest X-Ray 12/07/17 1107 Signed Impressions: Service Date/Time: Thursday, December 07, 2017 11:10 - CONCLUSION: No acute cardiopulmonary abnormalities identified. Background lung changes are torturous to give obstructive airways disease/emphysema. Atul Spain MD Objective Remarks GENERAL: Well-nourished, well-developed patient in NAD. Supplemental O2 SKIN: Warm and dry. No rash. HEAD: Normocephalic. Atraumatic. EYES: Pupils equal and round. No scleral icterus. No injection or drainage. ENT: No nasal bleeding or discharge. Mucous membranes pink and moist. NECK: Supple. Trachea midline. CARDIOVASCULAR: Regular rate and rhythm. S1, S2 noted. No murmur appreciated. RESPIRATORY: No accessory muscle use. Diffuse wheezing to posterior lower aspect of lung field. Breath sounds equal bilaterally. GASTROINTESTINAL: Abdomen soft, non-tender, nondistended. Normoactive bowel sounds x4. MUSCULOSKELETAL: No obvious deformities. Extremities without clubbing, cyanosis , or edema. NEUROLOGICAL: Awake and alert. No obvious cranial nerve deficits. Motor grossly within normal limits. 5/5 muscle strength in bilateral upper and lower extremities. Normal speech. PSYCHIATRIC: Appropriate mood and affect; insight and judgment normal. A/P Problem List: (1) Hypoxia ICD Code: R09.02 - Hypoxemia Status: Acute Plan: Etiology unclear in this patient with known immunocompromise, likely secondary to upper respiratory infection. requiring supplemental O2, currently on 2 L oxygen nasal cannula. Continue with empiric antibiotics for community-acquired pneumonia CT of the chest reviewed negative for embolic phenomena however there appears to be underlying emphysema although it is unclear if this is enough to cause the patient's acute shortness of breath Follow-up with pulmonology for further treatment plan, appreciate input. Continue bronchodilators, empiric IV steroids, empiric IV antibiotics. Sputum culture ordered. Pending. Follow. Blood Cultures negative to date. Supportive care. (2) Obstructive sleep apnea ICD Code: G47.33 - Obstructive sleep apnea (adult) (pediatric) Plan: Continue home CPAP machine nightly. (3) HIV (human immunodeficiency virus infection) ICD Code: B20 - Human immunodeficiency virus [HIV] disease Status: Acute Plan: Continue antivirals. DVT prophylaxis: SCDs. Lovenox. Rachel Naranjo Dec 09, 2017 09:22
[2017-12-09] MEDS ORDERED: cloNIDine HCL 0.1 MG TAB PO PRN (09:30)
[2017-12-09] MEDS: AZITHROMYCIN 250 MG TAB PO SCH (12:53)
[2017-12-09] MEDS ORDERED: FENT50T T-DERMAL (15:56)
[2017-12-09] MEDS ORDERED: fentaNYL 50 MCG/HR PATCH T-DERMAL SCH (17:00)
[2017-12-09] MEDS: ENOXAPARIN SODIUM 40 MG/0.4 ML SYRINGE SQ SCH (17:30)
[2017-12-09] MEDS: cefTRIAXone INJ 2,000 MG in SODIUM CHLORIDE 0.9% INJ 100 ML IV SCH (17:39)
--- NOTE | 2017-12-09 17:49 | HHI.PR ---
Subjective Remarks alert less sob cough improved Objective Vital Signs Date Time Temp Pulse Resp B/P (MAP) Pulse Ox O2 Delivery O2 Flow Rate FiO2 12/09/17 12:00 97.3 80 18 140/80 (100) 93 12/09/17 10:04 18 12/09/17 08:00 97.3 82 18 145/81 (102) 91 12/09/17 07:40 93 Nasal Cannula 2.00 12/09/17 05:03 12/09/17 00:00 97.9 78 20 169/60 (96) 94 12/08/17 20:00 97.5 98 21 167/76 (106) 94 12/08/17 19:54 94 Nasal Cannula 2.00 I/O 12/08/17 12/08/17 12/08/17 12/09/17 12/09/17 12/09/17 07:00 15:00 23:00 07:00 15:00 23:00 Intake Total 520 ml 720 ml 750 ml Output Total 1800 ml Balance 520 ml 720 ml -1050 ml Intake Oral 520 ml 720 ml 750 ml Output Urine Total 1800 ml # Voids 2 # Bowel Movements 1 0 Result Diagram: 12/07/17 1145 12/07/17 1145 Objective Remarks GENERAL: SKIN: Warm and dry. HEAD: Atraumatic. Normocephalic. EYES: Pupils equal and round. No scleral icterus. No injection or drainage. ENT: No nasal bleeding or discharge. Mucous membranes pink and moist. NECK: Trachea midline. No JVD. CARDIOVASCULAR: Regular rate and rhythm. RESPIRATORY: No accessory muscle use. Clear to auscultation. Breath sounds equal bilaterally. GASTROINTESTINAL: Abdomen soft, non-tender, nondistended. Hepatic and splenic margins not palpable. MUSCULOSKELETAL: Extremities without clubbing, cyanosis, or edema. No obvious deformities. NEUROLOGICAL: Awake and alert. No obvious cranial nerve deficits. Motor grossly within normal limits. Five out of 5 muscle strength in the arms and legs. Normal speech. PSYCHIATRIC: Appropriate mood and affect; insight and judgment normal. Assessment and Plan Assessment and Plan uri britney hiv positive plan o2 as needed antibx increase activity home am if stable José Kumar MD Dec 09, 2017 17:48
[2017-12-09] MEDS: traZODone HCL 100 MG TAB PO SCH (20:50)
[2017-12-09] MEDS: ATORVASTATIN 40 MG TAB PO SCH (20:50)
[2017-12-09] MEDS: QUEtiapine FUMARATE 100 MG TAB PO SCH (20:50)
[2017-12-09] MEDS: ZOLPIDEM TARTRATE 10 MG TAB PO PRN (22:43)
[2017-12-10] VITALS (7 sets, daily range): BP systolic 142–174; BP diastolic 71–86; PULSE 66–76; RESP 20; TEMP 96–97.7; O2SAT 91–96
[2017-12-10] MEDS: methylPREDNISolone SOD SUCC 40 MG/1 ML VIAL IV PUSH SCH (05:12)
[2017-12-10] MEDS: INSULIN NovoLIN REGULAR SUPPLEMENTAL SCALE SQ SCH ×4 (07:47→21:00)
[2017-12-10] MEDS: KETOCONAZOLE 2% CREAM 15 GM TOPICAL SCH ×2 (09:00→21:00)
[2017-12-10] MEDS: MODAFINIL 200 MG TAB PO SCH (09:01)
[2017-12-10] MEDS: LIPASE/PROTEASE/AMYLASE (24,000/76,000/120,000) CAP PO SCH ×4 (09:01→21:45)
[2017-12-10] MEDS: METOCLOPRAMIDE HCL 10 MG TAB PO SCH ×4 (09:01→21:46)
[2017-12-10] MEDS: ELVIT/COBI/EMTR/TENOF 150/150/200/300 MG TABLETS PO SCH (09:01)
[2017-12-10] MEDS: PANTOPRAZOLE SOD 40 MG DELAYED RELEASE TAB PO SCH (09:01)
[2017-12-10] MEDS: SERTRALINE HCL 100 MG TAB PO SCH (09:02)
[2017-12-10] MEDS: RESP: ACETYLCYSTEINE 10% 30 ML NEB NEB SCH ×3 (09:22→20:00)
[2017-12-10] MEDS: RESP: ALBUTEROL 1.25 MG/3 ML NEB (PRN) NEB ×3 (09:22→21:04)
[2017-12-10] MEDS ORDERED: METH1CHW3 PO (10:53)
[2017-12-10] MEDS: PREGABALIN 75 MG CAP PO SCH ×2 (10:56→21:47)
[2017-12-10] MEDS: AZITHROMYCIN 250 MG TAB PO SCH (13:41)
--- NOTE | 2017-12-10 15:15 | HHI.PR ---
Subjective Remarks alert less sob cough improved Objective Vital Signs Date Time Temp Pulse Resp B/P (MAP) Pulse Ox O2 Delivery O2 Flow Rate FiO2 12/10/17 11:56 18 12/10/17 11:50 96.7 76 20 174/81 (112) 93 12/10/17 09:25 94 Nasal Cannula 2.00 12/10/17 07:50 97.7 68 20 165/76 (105) 91 12/10/17 00:00 96.0 73 20 142/79 (100) 95 12/09/17 20:00 97.6 84 20 165/82 (109) 96 12/09/17 19:49 95 Nasal Cannula 2.00 12/09/17 18:37 18 12/09/17 16:00 97.7 90 18 152/88 (109) 96 I/O 12/09/17 12/09/17 12/09/17 12/10/17 12/10/17 12/10/17 07:00 15:00 23:00 07:00 15:00 23:00 Intake Total 750 ml 400 ml 720 ml Output Total 1800 ml 320 ml 1200 ml Balance -1050 ml 80 ml -480 ml Intake Oral 750 ml 300 ml 720 ml IV Total 100 ml Output Urine Total 1800 ml 320 ml 1200 ml # Bowel Movements 0 0 Result Diagram: 12/07/17 1145 12/07/17 1145 Objective Remarks GENERAL: SKIN: Warm and dry. HEAD: Atraumatic. Normocephalic. EYES: Pupils equal and round. No scleral icterus. No injection or drainage. ENT: No nasal bleeding or discharge. Mucous membranes pink and moist. NECK: Trachea midline. No JVD. CARDIOVASCULAR: Regular rate and rhythm. RESPIRATORY: No accessory muscle use. Clear to auscultation. Breath sounds equal bilaterally. GASTROINTESTINAL: Abdomen soft, non-tender, nondistended. Hepatic and splenic margins not palpable. MUSCULOSKELETAL: Extremities without clubbing, cyanosis, or edema. No obvious deformities. NEUROLOGICAL: Awake and alert. No obvious cranial nerve deficits. Motor grossly within normal limits. Five out of 5 muscle strength in the arms and legs. Normal speech. PSYCHIATRIC: Appropriate mood and affect; insight and judgment normal. Assessment and Plan Assessment and Plan uri britney hiv positive plan o2 as needed antibx increase activity home am if stable José Kumar MD Dec 10, 2017 15:15
[2017-12-10] MEDS ORDERED: CEFU1TAB20 PO (16:43)
[2017-12-10] MEDS ORDERED: AZIT250T3 PO (16:43)
[2017-12-10] MEDS: ENOXAPARIN SODIUM 40 MG/0.4 ML SYRINGE SQ SCH (18:02)
[2017-12-10] MEDS: ALPRAZolam 1 MG TAB PO PRN (21:45)
[2017-12-10] MEDS: traZODone HCL 100 MG TAB PO SCH (21:45)
[2017-12-10] MEDS: predniSONE 20 MG TAB PO SCH (21:46)
[2017-12-10] MEDS: QUEtiapine FUMARATE 100 MG TAB PO SCH (21:46)
[2017-12-10] MEDS: CEFUROXIME AXETIL 500 MG TAB PO SCH (21:46)
[2017-12-10] MEDS: ATORVASTATIN 40 MG TAB PO SCH (21:47)
[2017-12-10] MEDS: ZOLPIDEM TARTRATE 10 MG TAB PO PRN (21:55)
[2017-12-11] VITALS: BP 154/85; PULSE 77; RESP 20; TEMP 96.9; O2SAT 97
[2017-12-11 08:00] VITALS: BP 161/95; PULSE 70; RESP 18; TEMP 97.4; O2SAT 95
[2017-12-11] MEDS: RESP: ACETYLCYSTEINE 10% 30 ML NEB NEB SCH ×2 (08:00→14:00)
[2017-12-11 08:05] VITALS: O2SAT 92
[2017-12-11] MEDS: CEFUROXIME AXETIL 500 MG TAB PO SCH (08:27)
[2017-12-11] MEDS: INSULIN NovoLIN REGULAR SUPPLEMENTAL SCALE SQ SCH ×2 (08:27→12:00)
[2017-12-11] MEDS: PANTOPRAZOLE SOD 40 MG DELAYED RELEASE TAB PO SCH (08:27)
[2017-12-11] MEDS: MODAFINIL 200 MG TAB PO SCH (08:27)
[2017-12-11] MEDS: ELVIT/COBI/EMTR/TENOF 150/150/200/300 MG TABLETS PO SCH (08:28)
[2017-12-11] MEDS: METOCLOPRAMIDE HCL 10 MG TAB PO SCH ×2 (08:28→12:54)
[2017-12-11] MEDS: ALPRAZolam 1 MG TAB PO PRN (08:28)
[2017-12-11] MEDS: SERTRALINE HCL 100 MG TAB PO SCH (08:28)
[2017-12-11] MEDS: LIPASE/PROTEASE/AMYLASE (24,000/76,000/120,000) CAP PO SCH ×2 (08:28→12:53)
[2017-12-11] MEDS: predniSONE 20 MG TAB PO SCH (08:28)
[2017-12-11] MEDS: PREGABALIN 75 MG CAP PO SCH (08:29)
[2017-12-11] MEDS: KETOCONAZOLE 2% CREAM 15 GM TOPICAL SCH (09:00)
--- NOTE | 2017-12-11 10:35 | HHI.FF ---
Face to Face Verification Diagnosis: (1) Hypoxia (2) Upper respiratory disease Physical Therapy Order: Evaluate and Treat Occupational Therapy Order: Evaluate and Treat Home Health Nursing Order: Medical education I have seen patient Kareem Godfrey on 12/11/17. My clinical findings support the need for the requested home health care services because: Patient has SOB I certify that my clinical findings support that this patient is homebound because: Unsteady gait/balance Lyndsay Orourke MD Dec 11, 2017 10:35
[2017-12-11] MEDS ORDERED: OXYGENDME NAS.CANULA (10:38)
[2017-12-11 12:00] VITALS: BP 158/83; PULSE 69; RESP 18; TEMP 97.9; O2SAT 96
--- NOTE | 2017-12-11 12:30 | HHI.FF ---
Face to Face Verification Diagnosis: (1) Upper respiratory disease (2) Obstructive sleep apnea Home Health Nursing Order: Medical education Signs/symptoms of disease process Oxygen administration education I have seen patient Kareem Godfrey on 12/11/17. My clinical findings support the need for the requested home health care services because: Patient has SOB I certify that my clinical findings support that this patient is homebound because: Unsteady gait/balance Lyndsay Orourke MD Dec 11, 2017 12:30
--- NOTE | 2017-12-11 12:30 | HHI.DCPOC ---
Discharge Care Plan Diagnosis: (1) Upper respiratory disease (2) Obstructive sleep apnea Goals to Promote Your Health * To prevent worsening of your condition and complications * To maintain your health at the optimal level Directions to Meet Your Goals Take your medications as prescribed Follow your dietary instruction Follow activity as directed Keep your appointments as scheduled Take your immunizations and boosters as scheduled If your symptoms worsen call your PCP, if no PCP go to Urgent Care Center or Emergency Room Smoking is Dangerous to Your Health. Avoid second hand smoke Call the 24-hour hour crisis hotline for domestic abuse at Lyndsay Orourke MD Dec 11, 2017 12:30
--- NOTE | 2017-12-11 12:32 | HHI.DS ---
Discharge Summary Admission Date Dec 07, 2017 at 13:13 Discharge Date: Dec 11, 2017 Admitting Diagnosis hiv, hypoxia (1) Hypoxia ICD Code: R09.02 - Hypoxemia Status: Acute (2) Obstructive sleep apnea ICD Code: G47.33 - Obstructive sleep apnea (adult) (pediatric) (3) HIV (human immunodeficiency virus infection) ICD Code: B20 - Human immunodeficiency virus [HIV] disease Status: Acute Procedures none Brief History - From Admission 62-year-old male being admitted for acute hypoxic respiratory failure. Patient was in his usual state of health until about a few days ago when he began experiencing a runny nose. He was able to carry on with his routine tasks and chores until late last night he began coughing a lot. This morning when he woke up he began experiencing significant shortness of breath that prompted him to come to the emergency department. He denies any cyanosis, chest pain, nausea vomiting, diarrhea. He does report having chills. He says that his cough is very wet sounding but is unable to expectorate any sputum. He says he took some Robitussin to no avail. In the emergency department the patient was noted to desaturate down to 80% while walking on room air. Chest x-ray was obtained which shows what appears to be more chronic changes to the patient's lungs. Patient's medical history significant for HIV (currently without AIDS), on AMARO therapy, anxiety, insomnia, chronic pain. Social history and feels that the patient says he's been smoking up to about 6 cigarettes a day for about the past 30 years. Patient denies any family history of a particular lung disease or lung cancer. CBC/BMP: 12/07/17 1145 12/07/17 1145 Significant Findings Laboratory Tests Test 12/08/17 16:09 12/09/17 22:50 Arterial Blood pH 7.47 (7.380-7.420) Arterial Blood Partial Pressure CO2 31 mmHG (38-42) Urine Benzodiazepines Screen POS (NEG) Urine Cannabinoids Screen POS (NEG) Imaging Last Impressions CT Angiography 12/08/17 0000 Signed Impressions: Service Date/Time: Friday, December 08, 2017 10:28 - CONCLUSION: 1. Examination somewhat limited for evaluation of segmental and subsegmental branches. No pulmonary embolus identified. 2. Pulmonary emphysema most prominent at the left upper lobe. Bari Ramirez MD Chest X-Ray 12/07/17 1107 Signed Impressions: Service Date/Time: Thursday, December 07, 2017 11:10 - CONCLUSION: No acute cardiopulmonary abnormalities identified. Background lung changes are torturous to give obstructive airways disease/emphysema. Atul Spain MD PE at Discharge GENERAL: Well-nourished, well-developed patient in NAD. Supplemental O2 SKIN: Warm and dry. No rash. HEAD: Normocephalic. Atraumatic. EYES: Pupils equal and round. No scleral icterus. No injection or drainage. ENT: No nasal bleeding or discharge. Mucous membranes pink and moist. NECK: Supple. Trachea midline. CARDIOVASCULAR: Regular rate and rhythm. S1, S2 noted. No murmur appreciated. RESPIRATORY: No accessory muscle use. Diffuse wheezing to posterior lower aspect of lung field. Breath sounds equal bilaterally. GASTROINTESTINAL: Abdomen soft, non-tender, nondistended. Normoactive bowel sounds x4. MUSCULOSKELETAL: No obvious deformities. Extremities without clubbing, cyanosis , or edema. NEUROLOGICAL: Awake and alert. No obvious cranial nerve deficits. Motor grossly within normal limits. 5/5 muscle strength in bilateral upper and lower extremities. Normal speech. PSYCHIATRIC: Appropriate mood and affect; insight and judgment normal. Pt update on day of discharge This patient is doing better. Will require oxygen at discharge. Discharge plans discussed with patient. Hospital Course Patient is a 62-year-old gentleman with very stable HIV and on antiviral regimen. He had a severe upper and lower respiratory tract infection which appeared to cause significant hypoxemia. Patient did require oxygen. He was on IV antibiotics and continued to improve Pt Condition on Discharge: Good Discharge Disposition: Disch w/ Home Health Serv Discharge Time: <= 30 minutes Discharge Instructions DIET: Follow Instructions for: As Tolerated, No Restrictions Activities you can perform: Regular-No Restrictions Follow up Referrals: PCP Follow-up - 1 Week New Medications: Oxygen (O2) (Oxygen (O2)) Device LITER TRENT.CANULA CONTINUOUS for Prevent Hypoxemia, #2 Oxygen Concentrator Portable Gaseous 2 L/min via Nasal Canula Continuous For 99 months npi [id number] PENDING: Azithromycin (Azithromycin) 250 Mg Tab 500 MG PO Q24H for Infection, #7 TAB PENDING: Cefuroxime (Cefuroxime) 500 Mg Tab 500 MG PO Q12HR for Infection, #14 TAB Continued Medications: Alprazolam (Xanax) 1 Mg Tab 1 MG PO QID PRN for ANXIETY, TAB 0 Refills Amoxicillin (Amoxicillin) 500 Mg Cap 500 MG PO DIRECTED for Infection, CAP 0 Refills Atorvastatin (Lipitor) 80 Mg Tab 80 MG PO HS for Cholesterol Management, #30 TAB 0 Refills Celecoxib (Celebrex) 200 Mg Cap 200 MG PO BID for Pain Management, CAP 0 Refills Dronabinol (Marinol) 10 Mg Cap 10 MG PO HS, CAP 0 Refills Wusppfjjfayx-Swhdnapfmh-Gduufnndwlzv-Tenofvir (Stribild) [phone] Mg Tab 1 TAB PO DAILY for Mgmt Viral Infection, #30 TAB 0 Refills With food Fentanyl Patch 72 HR (Duragesic Patch 72 HR) 50 Mcg/Hr Patch 50 MCG T-DERMAL Q72H for Pain Management, #10 PATCH 0 Refills Remove old patch when new one placed. Fluoride (Sodium) (Fluoridex) 1.1 % Sodium Fluoride Paste..g. Ketoconazole Topical (Ketoconazole Topical) 2% Cream 1 APPLIC TOPICAL BID for Fungal Infection, #15 GM 0 Refills Lansoprazole (Prevacid) 30 Mg Capdr 30 MG PO BID, CAP 0 Refills Lansoprazole (Prevacid) 30 Mg Capdr 30 MG PO DAILY, CAP 0 Refills Metformin (Metformin) 500 Mg Tab 500 MG PO BIDPC for Blood Sugar Management, #60 TAB 0 Refills Methylphenidate (Methylphenidate) 10 Mg Chew 10 MG PO BID Metoclopramide (Reglan) 10 Mg Tab 10 MG PO QID, #120 TAB 0 Refills Modafinil (Provigil) 200 Mg Tab 200 MG PO DAILY for Manage Daytime Sleepiness, TAB 0 Refills Pancrelipase (Creon) 24,000-76,000-120,000 Units Cap 1 CAP PO QID NEB for Digestive Aid, #90 CAP 0 Refills Pregabalin (Lyrica) 225 Mg Cap 225 MG PO BID, #60 CAP 0 Refills Quetiapine (Seroquel) 100 Mg Tab 100 MG PO HS, #30 TAB 0 Refills Sertraline (Zoloft) 100 Mg Tab 100 MG PO DAILY, #30 TAB 0 Refills Sildenafil (Viagra) 100 Mg Tab 100 MG PO DAILY PRN for ERECTILE DYSFUNCTION, TAB 0 Refills Tapentadol (Nucynta) 75 Mg Tab 75 MG PO TID PRN for PAIN, TAB 0 Refills Trazodone (Trazodone) 300 Mg Tab 300 MG PO HS for Control Depression, #30 TAB 0 Refills Zolpidem ER (Ambien CR) 12.5 Mg Tab 12.5 MG PO HS PRN for INSOMNIA, TAB 0 Refills [Duralgesic] () 50 [Fluoridex Toothpaste] () 1 APPL BU DAILY [Testosterone] () 200 MG INJ [id number], 0 Refills [truvada] () PO DAILY [Xerostomic] () Lyndsay Orourke MD Dec 11, 2017 12:32
[2017-12-11] MEDS: AZITHROMYCIN 250 MG TAB PO SCH (12:53)
[2017-12-11] MEDS: ENOXAPARIN SODIUM 40 MG/0.4 ML SYRINGE SQ SCH (15:00)
[2017-12-12] MEDS ORDERED: REMOVE OLD DURAGESIC (FENTANYL) PATCH T-DERMAL SCH (17:00)
== END 2017-12-11 17:05 | disposition home health service (06) | DRG 974 ==
LOC: PHED 10:35 → PHEDA 13:13 → PH3A 14:43
PROVIDERS: ADMIT Hospitalist; ATTEND Hospitalist
DX: B20 Human immunodeficiency virus [HIV] disease (principal); J96.01 Acute respiratory failure with hypoxia; J18.9 Pneumonia, unspecified organism; J43.9 Emphysema, unspecified; G47.33 Obstructive sleep apnea (adult) (pediatric); J06.9 Acute upper respiratory infection, unspecified; F39 Unspecified mood [affective] disorder; G47.00 Insomnia, unspecified; F51.04 Psychophysiologic insomnia; M19.90 Unspecified osteoarthritis, unspecified site; F17.210 Nicotine dependence, cigarettes, uncomplicated; F41.9 Anxiety disorder, unspecified; F32.9 Major depressive disorder, single episode, unspecified; E11.9 Type 2 diabetes mellitus without complications; K21.9 Gastro-esophageal reflux disease without esophagitis; Z88.1 Allergy status to other antibiotic agents; Z79.84 Long term (current) use of oral hypoglycemic drugs
CPT/HCPCS: 36600; 71045; 71275; 80053; 80307; 82805; 82948; 83605; 83735; 84100; 85025; 85379; 85610; 85730; 87040; 87804; 93005; 94150; 94618; 94640; 94664; 96360; J0456; J0696; J1650; J2920; J2930; J7040; J7050; J7512; J7608; J7613; Q9967